=== PATIENT | male | born 1970 ===

== ENCOUNTER 2020-08-17 05:58 | Day surgery (SDC) | payer OTHER | END 2020-08-17 09:50 | disposition home or self-care (01) | LOC: AMB-ENDOS 05:58 | PROVIDERS: ATTEND Colon & Rectal Surgery | DX: K62.89 Other specified diseases of anus and rectum (principal); K64.0 First degree hemorrhoids; Z12.11 Encounter for screening for malignant neoplasm of colon; Z20.828 Contact with and (suspected) exposure to other viral communicable diseases ==